=== PATIENT | female | born 1995 | race Caucasian/White ===

== ENCOUNTER 2023-11-23 12:14 | Emergency (ER) | payer MEDICAID ==
[~2023-11-23] VITALS: Ht 162.6 cm; Wt 79.1 kg
[2023-11-23 14:02] LABS: ALBUMIN 4.1 G/DL (3.4-5.0); ANION GAP 9 (8-16); BLOOD UREA NITROGEN 7 MG/DL (7-18); BUN/CREATININE RATIO 14.3 (10.0-20.0); CHLORIDE 105 MMOL/L (99-107); CREATININE 0.49 MG/DL (0.40-0.90); ETHANOL < 10 MG/DL (<10); GLUCOSE 94 MG/DL (70-104); SODIUM 138 MMOL/L (135-145); THYROID STIMULATING HORMONE 3.05 ulU/ml (0.34-4.50); TOTAL CARBON DIOXIDE 23.8 MMOL/L (24-32); eCRCL 149 ML/MIN; eGFR > 90 ML/MIN
[2023-11-23 14:05] LABS: URINE HCG NEGATIVE (NEG)
[2023-11-23 14:11] LABS: BILIRUBIN,URINE NEGATIVE (Neg); CLARITY,URINE SLIGHTLY CLOUDY (Clear); COLOR,URINE YELLOW (Yellow); GLUCOSE, URINE NEGATIVE (Neg); KETONES,URINE NEGATIVE (Neg); LEUKOCYTE ESTERASE ,URINE SMALL (Neg); NITRITES, URINE NEGATIVE (Neg); OCCULT BLOOD,URINE NEGATIVE (Neg); PROTEIN,URINE NEGATIVE (Neg); UROBILINOGEN,URINE 0.2 E.U/dL (0.2-1.0)
[2023-11-23 14:17] LABS: BASOPHILS # (AUTO) 0.1 X10'3 (0-0.2); BASOPHILS % (AUTO) 1.1 % (0-1); EOSINOPHILS # (AUTO) 0.3 X10'3 (0-0.9); EOSINOPHILS % (AUTO) 3.8 % (0-6); HEMATOCRIT 33.7 % (35.0-45.0); HEMOGLOBIN 10.7 g/dl (12.0-16.0); LYMPHOCYTES # (AUTO) 1.6 X10'3 (1.1-4.8); LYMPHOCYTES % (AUTO) 21.7 % (21-51); MEAN CORPUSCULAR HEMOGLOBIN 20.6 PG (27.0-31.0); MEAN CORPUSCULAR HGB CONC 31.7 g/dL (33.0-36.5); MEAN CORPUSCULAR VOLUME 65.1 FL (78-98); MEAN PLATELET VOLUME 10.3 FL (7.4-10.4); MONOCYTES # (AUTO) 0.7 X10'3 (0-0.9); MONOCYTES % (AUTO) 9.6 % (2-12); NEUTROPHILS # (AUTO) 4.6 X10'3 (1.8-7.7); NEUTROPHILS % (AUTO) 63.8 % (42-75); PLATELET COUNT 256 X10'3 (140-440); RED BLOOD COUNT 5.17 X10'6 (4.20-5.60); RED CELL DISTRIBUTION WIDTH 16.3 % (11.5-14.5); WHITE BLOOD COUNT 7.2 X10'3 (4.5-11.0)
[2023-11-23 14:17] LABS: URINE AMPHETAMINE SCREEN NEGATIVE (Neg); URINE BARBITUATE SCREEN NEGATIVE (Neg); URINE BENZODIAZEPINES SCREEN NEGATIVE (Neg); URINE CANNABINOID SCREEN POSITIVE (Neg); URINE COCAINE SCREEN NEGATIVE (Neg); URINE METHADONE SCREEN NEGATIVE (Neg); URINE OPIATE SCREEN NEGATIVE (Neg); URINE PHENCYCLIDINE SCREEN NEGATIVE (Neg)
[2023-11-23 14:24] LABS: UA COLLECTION TYPE CLN CATCH MIDSTREAM
[2023-11-23 14:26] LABS: SQUAMOUS EPITHELIAL CELL,UR MANY /LPF (FEW)
[2023-11-23 14:27] LABS: BACTERIA,URINE 3+ /HPF (Neg); WBC,URINE 0-4 /HPF (0-4)
[2023-11-23 14:28] LABS: RBC,URINE NONE SEEN /HPF (0-2)
[2023-11-23 16:29] LABS: ANISOCYTOSIS 1+; HYPOCHROMASIA 1+; MICROCYTOSIS 2+; PLATELET ESTIMATE NORMAL
[2023-11-23 16:32] LABS: TARGET CELLS FEW
[2023-11-23 16:34] LABS: POLYCHROMASIA FEW; SPHEROCYTES FEW
[2023-11-23] MEDS ORDERED: proMETHazine 25mg tablet PO ONE (18:15)
[2023-11-23] MEDS ORDERED: NO HOME MEDS (18:33)
[2023-11-23] MEDS ORDERED: ondansetron 4mg rapidly disintigrating tab PO ONE (19:30)
[2023-11-24 06:14] VITALS: BP 103/57; PULSE 80; TEMP 98.2; O2SAT 99
[2023-11-24 08:10] VITALS: RESP 16
== END 2023-11-24 10:59 ==
LOC: ER 12:15
DX: R45.851 Suicidal ideations (principal); Z20.822 Contact with and (suspected) exposure to COVID-19; F12.90 Cannabis use, unspecified, uncomplicated; R79.89 Other specified abnormal findings of blood chemistry
CPT/HCPCS: 36415; 80048; 80305; 80320; 81001; 81025; 84443; 85008; 85025; 87811; 99285; Q0169